=== PATIENT | female | born 1975 | race Caucasian/White ===

== ENCOUNTER 2019-10-04 11:02 | Outpatient (REF) | payer MEDICAID, SELFPAY ==
[2019-10-04 20:54] LABS: HCT 39.6 % (36.0-46.0); HGB 13.2 g/dL (12.0-15.5)
[2019-10-04 21:07] LABS: Calculated LDL 96 mg/dL (<100); Cholesterol 176 mg/dL (<200); Glucose 113 mg/dL (74-106); HDL Cholesterol 70 mg/dL (40-60); Triglyceride 53 mg/dL (<150)
== END 2019-10-04 11:22 ==
LOC: NCHCN 11:02
PROVIDERS: PCP Family Medicine; Visit Provider Family Medicine
DX: N92.0 Excessive and frequent menstruation with regular cycle (principal); E66.3 Overweight
CPT/HCPCS: 80061; 82947; 85014; 85018

== ENCOUNTER 2021-03-15 16:02 | Outpatient (REF) | payer OTHER, SELFPAY ==
[2021-03-15 21:43] LABS: Abs Immature Grans 0.01 10^3/uL (0.0-0.06); Absolute Basophil Count 0.02 10^3/uL (0.0-0.2); Absolute Eosinophil Count 0.18 10^3/uL (0.0-0.7); Absolute Lymphocyte Count 2.17 10^3/uL (1.2-3.4); Absolute Monocyte Count 0.66 10^3/uL (0.1-0.8); Absolute Neutrophil Count 4.06 10^3/uL (1.2-6.7); Basophils % 0.3; Eosinophils % 2.5; HCT 41.7 % (36.0-46.0); HGB 13.5 g/dL (11.2-15.7); Immature Grans % 0.1; Lymphocytes % 30.6; MCHC 32.4 % (32.0-36.0); MCV 95.9 fL (80-95); MPV 11.2 fL (8.0-11.0); Monocytes % 9.3; Neutrophils % 57.2; Nucleated RBC 0 %; Platelet Count 342 10^3/uL (130-400); RBC 4.35 10^6/uL (3.93-5.22); RDW 13.2 % (11.7-14.6); RDW-SD 46.9 fL
[2021-03-15 22:02] LABS: ALT 26 U/L (14-59); AST 14 U/L (15-37); Albumin 4.1 g/dL (3.4-5.0); Alkaline Phosphatase 54 U/L (46-116); Anion Gap 10.9 mmol/L (3-11); BUN 4 mg/dL (7-18); Bilirubin, Total 0.3 mg/dL (0.2-1.0); CO2 27.1 mmol/L (21.0-32.0); CREATININE 0.7 mg/dL (0.55-1.02); Calcium 9.2 mg/dL (8.5-10.1); Chloride 105 mmol/L (98-107); Glucose 108 mg/dL (74-106); Potassium 3.9 mmol/L (3.5-5.1); Sodium 143 mmol/L (136-145); TSH (W/Ref FT4) 4.03 uIU/mL (0.36-3.74)
[2021-03-15 22:25] LABS: FREE T4 1.19 ng/dL (0.76-1.46)
[2021-03-16 22:20] LABS: COVID-19 RT-PCR UVMMC Result Negative (Negative)
== END 2021-03-15 16:03 | disposition home or self-care (01) ==
LOC: NCHCN 16:02
PROVIDERS: PCP Family Medicine; Visit Provider Internal Medicine
DX: Z20.822 Contact with and (suspected) exposure to COVID-19 (principal); J06.9 Acute upper respiratory infection, unspecified; R53.83 Other fatigue
CPT/HCPCS: 80053; U0003; 84439; 84443; 85025

== ENCOUNTER 2021-08-17 18:24 | Outpatient (REF) | payer OTHER, SELFPAY ==
[2021-08-17 21:37] LABS: TSH 2.09 uIU/mL (0.36-3.74)
== END 2021-08-17 18:25 | disposition home or self-care (01) ==
LOC: NCHCN 18:24
PROVIDERS: PCP Family Medicine; Visit Provider Family Medicine
DX: Z86.39 Personal history of other endocrine, nutritional and metabolic disease (principal)
CPT/HCPCS: 84443

== ENCOUNTER 2022-04-04 10:53 | Outpatient (REF) | payer OTHER, SELFPAY | END 2022-04-04 10:54 | disposition home or self-care (01) | LOC: NCHCN 10:53 | PROVIDERS: PCP Family Medicine; Visit Provider Family Medicine | DX: N39.0 Urinary tract infection, site not specified (principal) | CPT/HCPCS: 87077; 87086; 87186 ==

== ENCOUNTER 2022-08-23 15:59 | Outpatient (REF) | payer OTHER, SELFPAY ==
--- NOTE | 2022-08-23 15:15 | PAPFT_PTH ---
PATIENT: Sherri Raya LOC: [facility]#:[id number] AGE/SX: 47/F ROOM: RE08/23/[address]: Mary Lou Stout : 1975 BED: DIS: 08/23/2022 SPEC #: [id number] RECD: 08/24/22 12:40 STATUS: DEJUAN RERadha #: [id number] BLANE: 08/23/22 15:[address]: Mary Lou Stout DEPT: [facility] Cytology RECD BY: Salina Littlejohn Tissues: 1 - CX/ENDOCX FOR PAP SMEARS Procedures: PAP THIN PREP/UVM Screening HPV DNA PROBE Comments: [id number]
[2022-08-23 21:07] LABS: TSH (W/Ref FT4) 2.36 uIU/mL (0.36-3.74)
== END 2022-08-23 16:00 | disposition home or self-care (01) ==
LOC: NCHCN 15:59
PROVIDERS: PCP Family Medicine; Visit Provider Family Medicine
DX: Z00.00 Encounter for general adult medical examination without abnormal findings (principal); Z12.4 Encounter for screening for malignant neoplasm of cervix; E03.9 Hypothyroidism, unspecified
CPT/HCPCS: 88142; 84443; 87624